=== PATIENT | male | born 1950 | race Caucasian/White ===

== ENCOUNTER → 2021-11-16 09:20 | Outpatient (BNVA) | payer MEDICARE, OTHER, SELFPAY | PROVIDERS: Family Provider Student in an Organized Health Care Education/Training Program; Visit Provider Orthopaedic Surgery | DX: M17.11 Unilateral primary osteoarthritis, right knee (principal); M23.303 Other meniscus derangements, unspecified medial meniscus, right knee; M23.41 Loose body in knee, right knee | CPT/HCPCS: 99203 ==